=== PATIENT | male | born 1935 | race Caucasian/White ===

== ENCOUNTER 2020-01-30 13:10 | Outpatient (CLI) | payer MEDICARE, SELFPAY ==
--- NOTE | ~2020-01-30 | CT_ITS ---
EXAMINATION: CT abdomen pelvis w con INDICATION: Upper abdominal pain TECHNIQUE: Computed tomographic images of the abdomen and pelvis were obtained after the administrati on of 100 cc of Omnipaque 350 intravenous contrast. The dose-length product (DLP) was 393.62 mGy-cm. Automated exposure control and iterative reconstruction technique were employed. COMPARISON: 08/09/2012 FINDINGS: Minimal dependent atelectasis is present in the lung bases. Cardiomegaly is noted. There is moderate emphysema. Punctate calcifications in otherwise normal appearing liver and spleen likely re present healed granulomatous disease. The pancreas, gallbladder, and adrenal glands are normal. The k idneys are unremarkable. An aortobiiliac stent graft is noted. Maximum diameter of the abdominal aort a is 2.9 cm. No pathologically enlarged abdominal or pelvic lymph nodes are identified. There is no f ree intraperitoneal gas or evidence of bowel obstruction. A moderate volume of colonic stool is prese nt. There is moderate lumbar spondylosis with changes of anterior and posterior fusion from L4 throug h S1. IMPRESSION: 1. No CT correlate for the patient's symptoms. Reviewed, dictated and finalized at location A.
[2020-01-30 13:37] LABS: Estimated Glomerular Filt Rate 32
== END 2020-01-30 13:11 ==
PROVIDERS: PCP Physician Assistant; Visit Provider Physician Assistant
DX: R10.10 Upper abdominal pain, unspecified (principal)
CPT/HCPCS: 74177; Q9967

== ENCOUNTER 2020-10-02 14:54 | Outpatient (CLI) | payer MEDICARE, SELFPAY ==
--- NOTE | 2020-10-07 14:10 | WPDSIXMINUTE ---
Six Minute Walk Procedure Procedure Performed Pulmonary Stress Test (6 min walk) Six Minute Walk This is a 6 minutes walk test. The test was performed and interpreted in accordance with the 2014 ERS/ATS task force guidelines. Findings: The patient's resting room air oxygen saturation measured by pulse oximetry was 95% and her heart rate was 69 bpm. Patient ambulated for 152 meters and oxygen saturation remained 94 to 98%. Heart rate at the end of the study was 77 bpm. The patient did not qualify for supplemental oxygen at rest or with ambulation. There are no prior studies for comparison.
--- NOTE | 2020-10-07 14:11 | WPDPFTINT ---
PFT Procedure Performed PFT Procedure Performed Spirometry with Pre/Post Bronchodilator Diffusing Cap (DLCO) Flow Vol Loop PFT Interpretation This is a pulmonary function test with pre and post-bronchodilator spirometry and diffusing capacity. The test was performed and results interpreted in accordance with the 2019 and 2005 ATS/ERS Task Force guidelines respectively using the Global Lung Function Initiative-2012 reference equations. Patient demonstrated good effort and cooperation. Reproducibility criteria were met. The quality of the pre bronchodilator spirometry maneuver was Grade A and post bronchodilator spirometry maneuver was Grade A. Of note the patient has struggled with the testing and directions due to age-related barriers. Patient was unable to complete plethysmography. Findings: Spirometry: There is decreased maximal expiratory airflow at low lung volumes. The contour the inspiratory flow tracing is normal. The pre bronchodilator FVC is 2.48 L, 65% predicted. The pre bronchodilator FEV1 is 1.69 L, 60% predicted. The FEV1: FVC ratio was 68%. The post bronchodilator FVC is 2.74 L, representing a 10% increase. The post bronchodilator FEV1 is 1.54 L, representing a 9% decrease. Diffusing capacity: The absolute diffusion capacity is 9.9, 42% predicted. The diffusing capacity corrected for alveolar volume is 2.92, 82% predicted. Impression: There is a moderate obstructive abnormality without significant improvement after inhaling a single dose of albuterol. The absolute diffusing capacity is moderately decreased and normalizes when corrected for alveolar volume. The patient was unable to complete plethysmography so no lung volumes were measured. There are no prior studies for comparison
== END 2020-10-02 14:55 | disposition home or self-care (01) ==
PROVIDERS: PCP Physician Assistant; Visit Provider Physician Assistant
DX: J44.9 Chronic obstructive pulmonary disease, unspecified (principal); R94.2 Abnormal results of pulmonary function studies
CPT/HCPCS: 94060; 94618; 94729